=== PATIENT | male | born 1975 | race Caucasian/White ===

== ENCOUNTER 2023-06-15 10:43 | Outpatient (CLI) | payer BC | END 2023-06-15 10:44 | disposition home or self-care (01) | LOC: BICRAD 10:43 | PROVIDERS: ATTEND Family Medicine | DX: M79.645 Pain in left finger(s) (principal) ==

== ENCOUNTER 2025-04-18 08:06 | Outpatient (CLI) | payer BC | END 2025-04-18 08:07 | disposition home or self-care (01) | LOC: ULT 08:06 | PROVIDERS: ATTEND Family Medicine | DX: R74.8 Abnormal levels of other serum enzymes (principal); R93.2 Abnormal findings on diagnostic imaging of liver and biliary tract | CPT/HCPCS: 76700; 93976 ==